=== PATIENT | male | born 1955 | race Caucasian/White ===

== ENCOUNTER 2019-10-20 11:15 | Emergency (ER) | payer OTHER ==
[~2019-10-20] VITALS: Ht 190.5 cm; Wt 77.1 kg
[2019-10-20] MEDS ORDERED: Chantix1 MG PO (11:30)
[2019-10-20 12:30] LABS: Alanine Aminotransfer (ALT/SGP 40 U/L (12-78); Albumin, Blood 3.5 g/dL (3.4-5.0); Albumin/Globulin Ratio 1.1 (0.8-1.8); Alk Phos 111 U/L (50-136); Anion Gap 9 mmol/L (6-16); Aspartate Aminotrans (AST/SGOT 26 U/L (12-37); Bilirubin, Total 0.8 mg/dL (0.1-1.0); Blood Urea Nitrogen 18 mg/dL (8-24); Bun/Creatinine Ratio 14.3 (12.0-20.0); CO2, Blood 22 mmol/L (21-32); Calcium, Blood 8.6 mg/dL (8.5-10.1); Chloride, Blood 105 mmol/L (98-108); Creatinine, Blood 1.26 mg/dL (0.60-1.20); Globulin, Blood 3.3 g/dL (2.2-4.0); Glomerular Filtration Rate >60 (60-); Glucose, Blood 146 mg/dL (70-99); Potassium, Blood 4.4 mmol/L (3.5-5.5); Sodium, Blood 136 mmol/L (136-145); Total Protein, Blood 6.8 g/dL (6.4-8.2)
[2019-10-20] MEDS ORDERED: TAMS.4ER PO (12:47)
[2019-10-20] MEDS ORDERED: HYDR1TAB94 PO (12:47)
[2019-10-20 13:15] LABS: BASOPHILS ABSOLUTE AUTO 0.03 K/mm3 (0.00-0.23); BASOPHILS PERCENT AUTO 0 % (0-2); EOSINOPHILS PERCENT AUTO 0 % (0-6); Hematocrit 42.6 % (37.0-53.0); Hemoglobin 14.3 g/dL (13.5-17.5); IMMATURE GRAN ABSOLUTE AUTO 0.06 K/mm3 (0.00-0.10); IMMATURE GRAN PERCENT AUTO 1 % (0-1); LYMPHOCYTES ABSOLUTE AUTO 0.76 K/mm3 (0.84-5.20); LYMPHOCYTES PERCENT AUTO 6 % (21-46); MONOCYTES ABSOLUTE AUTO 0.51 K/mm3 (0.16-1.47); MONOCYTES PERCENT AUTO 4 % (4-13); Mean Corpuscular HGB 31.8 pg (26.0-34.0); Mean Corpuscular HGB Conc 33.6 g/dL (31.5-36.5); Mean Corpuscular Volume 95 fL (80-100); Mean Platelet Volume 9.3 fL (9.1-12.4); NEUTROPHILS ABSOLUTE AUTO 11.02 K/mm3 (1.96-9.15); NEUTROPHILS PERCENT AUTO 89 % (41-73); Platelet Count 217 K/mm3 (150-400); RDW Coefficient Variation 11.8 % (11.7-14.2); RDW Standard Deviation 41.1 fL (35.1-46.3); Red Blood Cell Count 4.49 M/mm3 (4.30-5.90); White Blood Cell Count 12.38 K/mm3 (4.00-11.30)
[2019-10-20 14:11] LABS: Source, Urine Clean Catch
[2019-10-20 14:27] LABS: Bilirubin, Urine Neg (Neg); Blood, Urine 2+ (Neg); Glucose Qualitative, Urine Neg (Neg); Ketones, Urine 1+ (Neg); Leukocyte Esterase, Urine Neg (Neg); Nitrite, Urine Neg (Neg); Protein, Urine Neg (Neg); Specific Gravity, Urine 1.015 (1.003-1.022); Urobilinogen, Urine NORM (Normal)
[2019-10-20 14:56] LABS: Appearance, Urine Clear (Clear); Color, Urine Yellow (P-Yellow)
[2019-10-20 15:00] LABS: Bacteria Not Seen /hpf; Squamous Epithelial Cells Not Seen /hpf (Few); White Blood Cells, Urine 0-2 /hpf (0-5)
== END 2019-10-20 14:20 | disposition home or self-care (01) ==
LOC: ER 11:15
PROVIDERS: Emergency Medicine
DX: N13.2 Hydronephrosis with renal and ureteral calculous obstruction (principal); I71.9 Aortic aneurysm of unspecified site, without rupture; Z88.0 Allergy status to penicillin; Z79.899 Other long term (current) drug therapy; Z87.891 Personal history of nicotine dependence
CPT/HCPCS: 36415; 74176; 80053; 81001; 83690; 85025; 96361; 96374; 96375; 99284-25; J1885; J2405; J3010; J7030

== ENCOUNTER 2020-08-22 04:40 | Emergency (ER) | payer OTHER ==
[~2020-08-22] VITALS: Ht 182.9 cm; Wt 74.8 kg
[~2020-08-22 04:40] MED LIST: Chantix1 MG PO; HYDR1TAB94 PO; TAMS.4ER PO
[2020-08-22] MEDS ORDERED: SYMBICORT 80-10.2 GM INH (05:20)
[2020-08-22 06:03] LABS: Source, Urine Clean Catch
[2020-08-22 06:14] LABS: Appearance, Urine Clear (Clear); Bilirubin, Urine Neg (Neg); Blood, Urine 5+ (Neg); Color, Urine Yellow (P-Yellow); Glucose Qualitative, Urine Neg (Neg); Ketones, Urine Neg (Neg); Leukocyte Esterase, Urine 1+ (Neg); Nitrite, Urine Neg (Neg); Protein, Urine 1+ (Neg); Specific Gravity, Urine 1.025 (1.003-1.022); Urobilinogen, Urine NORM (Normal)
[2020-08-22 06:33] LABS: Red Blood Cells, Urine 50-100 /hpf (0-2); White Blood Cells, Urine 0-2 /hpf (0-5)
[2020-08-22 06:34] LABS: Bacteria Few /hpf; Mucus Light (0-Heavy); Squamous Epithelial Cells Rare /hpf (Few)
== END 2020-08-22 06:50 | disposition home or self-care (01) ==
LOC: ER 04:40
PROVIDERS: Student in an Organized Health Care Education/Training Program
DX: N20.0 Calculus of kidney (principal); J44.9 Chronic obstructive pulmonary disease, unspecified; F17.210 Nicotine dependence, cigarettes, uncomplicated
CPT/HCPCS: 81001; 87086; 99284

== ENCOUNTER 2020-09-05 09:35 | Emergency (ER) | payer OTHER ==
[~2020-09-05] VITALS: Ht 182.9 cm; Wt 74.8 kg
[~2020-09-05 09:35] MED LIST changes: +SYMBICORT 80-10.2 GM INH
[2020-09-05 10:10] LABS: BASOPHILS ABSOLUTE AUTO 0.07 K/mm3 (0.00-0.23); BASOPHILS PERCENT AUTO 1 % (0-2); EOSINOPHILS ABSOLUTE AUTO 0.16 K/mm3 (0.00-0.68); EOSINOPHILS PERCENT AUTO 2 % (0-6); Hematocrit 45.9 % (37.0-53.0); Hemoglobin 15.3 g/dL (13.5-17.5); IMMATURE GRAN ABSOLUTE AUTO 0.02 K/mm3 (0.00-0.10); IMMATURE GRAN PERCENT AUTO 0 % (0-1); LYMPHOCYTES ABSOLUTE AUTO 1.72 K/mm3 (0.84-5.20); LYMPHOCYTES PERCENT AUTO 24 % (21-46); MONOCYTES ABSOLUTE AUTO 0.83 K/mm3 (0.16-1.47); MONOCYTES PERCENT AUTO 12 % (4-13); Mean Corpuscular HGB 32.1 pg (26.0-34.0); Mean Corpuscular HGB Conc 33.3 g/dL (31.5-36.5); Mean Corpuscular Volume 96 fL (80-100); Mean Platelet Volume 9.7 fL (9.1-12.4); NEUTROPHILS ABSOLUTE AUTO 4.27 K/mm3 (1.96-9.15); NEUTROPHILS PERCENT AUTO 60 % (41-73); Platelet Count 239 K/mm3 (150-400); RDW Coefficient Variation 12.2 % (11.7-14.2); RDW Standard Deviation 43.8 fL (35.1-46.3); Red Blood Cell Count 4.76 M/mm3 (4.30-5.90); White Blood Cell Count 7.07 K/mm3 (4.00-11.30)
[2020-09-05 10:20] LABS: Alanine Aminotransfer (ALT/SGP 33 U/L (12-78); Albumin, Blood 3.5 g/dL (3.4-5.0); Alk Phos 119 U/L (50-136); Anion Gap 3 mmol/L (6-16); Aspartate Aminotrans (AST/SGOT 24 U/L (12-37); Bilirubin, Total 0.8 mg/dL (0.1-1.0); Blood Urea Nitrogen 21 mg/dL (8-24); Bun/Creatinine Ratio 18.6 (12.0-20.0); CO2, Blood 29 mmol/L (21-32); Calcium, Blood 9.1 mg/dL (8.5-10.1); Chloride, Blood 108 mmol/L (98-108); Creatinine, Blood 1.13 mg/dL (0.60-1.20); Globulin, Blood 3.6 g/dL (2.2-4.0); Glomerular Filtration Rate >60 (60-); Glucose, Blood 122 mg/dL (70-99); Potassium, Blood 4.2 mmol/L (3.5-5.5); Sodium, Blood 140 mmol/L (136-145); Total Protein, Blood 7.1 g/dL (6.4-8.2)
[2020-09-05 10:41] LABS: Source, Urine Clean Catch
[2020-09-05 10:47] LABS: Appearance, Urine Clear (Clear); Bilirubin, Urine Neg (Neg); Blood, Urine 4+ (Neg); Color, Urine Yellow (P-Yellow); Glucose Qualitative, Urine Neg (Neg); Ketones, Urine Neg (Neg); Leukocyte Esterase, Urine Neg (Neg); Nitrite, Urine Neg (Neg); Protein, Urine Neg (Neg); Specific Gravity, Urine 1.025 (1.003-1.022); Urobilinogen, Urine NORM (Normal)
[2020-09-05 11:22] LABS: Bacteria Mod /hpf; Squamous Epithelial Cells Not Seen /hpf (Few)
[2020-09-05] MEDS ORDERED: Percocet 5-3251 EACH PO (11:36)
[2020-09-05] MEDS ORDERED: IBUP400 PO (11:36)
[2020-09-05] MEDS ORDERED: ONDA4ODT SL (11:36)
== END 2020-09-05 12:04 | disposition home or self-care (01) ==
LOC: ER 09:35
PROVIDERS: Emergency Medicine
DX: N13.2 Hydronephrosis with renal and ureteral calculous obstruction (principal); I71.9 Aortic aneurysm of unspecified site, without rupture; J44.9 Chronic obstructive pulmonary disease, unspecified; F17.210 Nicotine dependence, cigarettes, uncomplicated; Z88.0 Allergy status to penicillin; Z79.899 Other long term (current) drug therapy
CPT/HCPCS: 36415; 74176; 80053; 81001; 83690; 85025; 87086; 96374; 96375; 99284-25; J1170; J1885; J2405; J7030

== ENCOUNTER 2022-04-09 08:33 | Day surgery (SDC) | payer OTHER ==
[~2022-04-09] VITALS: Ht 182.9 cm; Wt 71.4 kg
[~2022-04-09 08:33] MED LIST changes: +IBUP400 PO; +ONDA4ODT SL; +Percocet 5-3251 EACH PO
[2022-04-09] MEDS ORDERED: Chantix1 MG (09:10)
[2022-04-09] MEDS ORDERED: TIOT18 (09:10)
== END 2022-04-09 10:50 | disposition home or self-care (01) ==
LOC: ORSCSDS 08:33
PROVIDERS: Internal Medicine Gastroenterology
PROC: 0DBL8ZX Excision of Transverse Colon, Via Natural or Artificial Opening Endoscopic, Diagnostic (ICD-10-PCS; principal; 2022-04-09 09:45)
PROC: 0DBN8ZX Excision of Sigmoid Colon, Via Natural or Artificial Opening Endoscopic, Diagnostic (ICD-10-PCS; principal; 2022-04-09 09:45)
PROC: 0DBM8ZX Excision of Descending Colon, Via Natural or Artificial Opening Endoscopic, Diagnostic (ICD-10-PCS; principal; 2022-04-09 09:45)
DX: R19.5 Other fecal abnormalities (principal); D12.3 Benign neoplasm of transverse colon; D12.4 Benign neoplasm of descending colon; D12.5 Benign neoplasm of sigmoid colon; K64.8 Other hemorrhoids; K57.30 Diverticulosis of large intestine without perforation or abscess without bleeding; J44.9 Chronic obstructive pulmonary disease, unspecified; Z79.51 Long term (current) use of inhaled steroids; Z79.899 Other long term (current) drug therapy; Z87.891 Personal history of nicotine dependence
CPT/HCPCS: 88305; 93005; 93010; J2704; J7120

== ENCOUNTER 2024-08-12 23:02 | Inpatient (IN) | payer OTHER ==
[~2024-08-12] VITALS: Ht 182.9 cm; Wt 67.5 kg
[~2024-08-12 23:02] MED LIST changes: +Chantix1 MG; +TIOT18 INH
[2024-08-12] MEDS ORDERED: Albuterol 2.5 MG/3 ML VIAL INH SCH (23:10)
[2024-08-12 23:35] LABS: Base Excess Venous 0.3 mmol/L; Bicarbonate Venous 24.8 mmol/L (24.0-30.0); pH Blood Venous 7.41 (7.34-7.37)
[2024-08-12 23:36] LABS: BASOPHILS PERCENT AUTO 1 % (0-2); EOSINOPHILS ABSOLUTE AUTO 0.68 K/mm3 (0.00-0.68); EOSINOPHILS PERCENT AUTO 6 % (0-6); Hematocrit 42.6 % (37.0-53.0); Hemoglobin 14.5 g/dL (13.5-17.5); IMMATURE GRAN ABSOLUTE AUTO 0.04 K/mm3 (0.00-0.10); IMMATURE GRAN PERCENT AUTO 0 % (0-1); LYMPHOCYTES ABSOLUTE AUTO 3.09 K/mm3 (0.84-5.20); LYMPHOCYTES PERCENT AUTO 26 % (21-46); MONOCYTES ABSOLUTE AUTO 1.45 K/mm3 (0.16-1.47); MONOCYTES PERCENT AUTO 12 % (4-13); Mean Corpuscular HGB 31.5 pg (26.0-34.0); Mean Corpuscular Volume 93 fL (80-100); Mean Platelet Volume 9.4 fL (9.1-12.4); NEUTROPHILS ABSOLUTE AUTO 6.57 K/mm3 (1.96-9.15); NEUTROPHILS PERCENT AUTO 55 % (41-73); Platelet Count 237 K/mm3 (150-400); RDW Coefficient Variation 12.1 % (11.7-14.2); RDW Standard Deviation 41.1 fL (35.1-46.3); White Blood Cell Count 11.93 K/mm3 (4.00-11.30)
[2024-08-13] LABS: Magnesium, Blood 4.3 mg/dL (1.6-2.4)
[2024-08-13 00:01] LABS: Albumin, Blood 3.6 g/dL (3.4-5.0); Albumin/Globulin Ratio 1.1 (0.8-1.8); Bilirubin, Total 0.6 mg/dL (0.1-1.0); Bun/Creatinine Ratio 21.7 (12.0-20.0); Calcium, Blood 8.8 mg/dL (8.5-10.1); Creatinine, Blood 1.06 mg/dL (0.60-1.20); Globulin, Blood 3.3 g/dL (2.2-4.0); Phosphorus, Blood 4.3 mg/dL (2.5-4.9); Potassium, Blood 4.1 mmol/L (3.5-5.5); Total Protein, Blood 6.9 g/dL (6.4-8.2)
[2024-08-13 00:23] LABS: D-Dimer, Quantitative 2.58 mg/L FEU (0.00-0.52); International Normalized Ratio 1.02; Prothrombin Time Results 10.9 Sec (9.7-11.5)
[2024-08-13 02:20] LABS: Source, Urine Clean Catch
[2024-08-13 02:23] LABS: Bilirubin, Urine Neg (Neg); Blood, Urine Neg (Neg); Glucose Qualitative, Urine 2+ (Neg); Ketones, Urine 1+ (Neg); Leukocyte Esterase, Urine Neg (Neg); Nitrite, Urine Neg (Neg); Protein, Urine Neg (Neg); Urobilinogen, Urine NORM (Normal)
[2024-08-13 02:45] LABS: Appearance, Urine Clear (Clear); Color, Urine Yellow (P-Yellow)
[2024-08-13] MEDS ORDERED: Azithromycin 500 MG in NS 250 ML IV ONE ×2 (03:00→04:20)
[2024-08-13] MEDS ORDERED: NS 1,000 ML IV SCH (03:00)
[2024-08-13] MEDS ORDERED: FLU VACC TS2024-25(6MOS UP)/PF 45 MCG/0.5 ML SYRINGE IM ONE (03:15)
[2024-08-13] MEDS ORDERED: Ipratropium/Albuterol SulF 2.5-0.5MG/3 ML Amp INH SCH ×2 (03:15→16:37)
[2024-08-13] MEDS ORDERED: Acetaminophen 325 MG TABLET PO PRN (03:15)
[2024-08-13] MEDS ORDERED: Ondansetron 4 MG TAB PO PRN (03:20)
[2024-08-13 05:35] LABS: Influenza A, PCR NEGATIVE (NEGATIVE); Influenza B, PCR NEGATIVE (NEGATIVE); Resp Syncytial Virus, PCR NEGATIVE (NEGATIVE); SARS-Cov-2 (COVID-19) PCR, MMC NEGATIVE (NEGATIVE)
[2024-08-13] MEDS ORDERED: GuaiFENesin 600 MG TabCR PO SCH (09:00)
[2024-08-13] MEDS ORDERED: Enoxaparin 40 MG/0.4 ML SYR SC SCH (09:00)
[2024-08-13] MEDS ORDERED: Lactobacil 2-S.Thermo-Bifido 1 1 Cap PO SCH (09:00)
[2024-08-13] MEDS ORDERED: PredniSONE 20 MG Tab PO SCH (09:00)
[2024-08-13] MEDS ORDERED: Dose Adjust by Pharmacy XX STA ×2 (09:54→17:51)
[2024-08-13] MEDS ORDERED: Heparin Sodium 5000 Units/ML 1ML MDV IV ONE (09:55)
[2024-08-13] MEDS ORDERED: Heparin Sodium,Porcine/0.5 NS 500 ML IV SCH (09:55)
[2024-08-13] MEDS ORDERED: Aspirin 325 MG Tab PO ONE (16:25)
[2024-08-13] MEDS ORDERED: Albuterol 2.5 MG/3 ML VIAL INH PRN (16:40)
[2024-08-13 16:51] VITALS: BP 110/70
[2024-08-13] MEDS ORDERED: DIPH25 PO (18:11)
--- NOTE | 2024-08-13 19:25 | NUR ---
ADMISSION: REPORT RECEIVED FROM PILE DRIVER ENGINEER ERIC. PT TO UNIT AT ABOUT 1650. A/O, VSS. PT SOB ON EXERTION, RECOVERS WELL AT REST SP02 ABOVE 90% ON 2L NC. TELE VERIFIED BY ST Richard UMANZOR. PT DENIES CP AT THIS TIME. PT ORIENTED TO ROOM AND CALL LIGHT. WILL MONITOR.
[2024-08-13 19:41] VITALS: BP 111/75
[2024-08-14] VITALS (7 sets, daily range): BP systolic 104–145; BP diastolic 58–99
[2024-08-14 01:36] LABS: BASOPHILS ABSOLUTE AUTO 0.03 K/mm3 (0.00-0.23); BASOPHILS PERCENT AUTO 0 % (0-2); EOSINOPHILS ABSOLUTE AUTO 0.01 K/mm3 (0.00-0.68); EOSINOPHILS PERCENT AUTO 0 % (0-6); Hematocrit 38.1 % (37.0-53.0); Hemoglobin 12.8 g/dL (13.5-17.5); IMMATURE GRAN ABSOLUTE AUTO 0.08 K/mm3 (0.00-0.10); IMMATURE GRAN PERCENT AUTO 0 % (0-1); LYMPHOCYTES ABSOLUTE AUTO 1.85 K/mm3 (0.84-5.20); LYMPHOCYTES PERCENT AUTO 10 % (21-46); MONOCYTES ABSOLUTE AUTO 1.76 K/mm3 (0.16-1.47); MONOCYTES PERCENT AUTO 9 % (4-13); Mean Corpuscular HGB 31.5 pg (26.0-34.0); Mean Corpuscular HGB Conc 33.6 g/dL (31.5-36.5); Mean Corpuscular Volume 94 fL (80-100); Mean Platelet Volume 9.7 fL (9.1-12.4); NEUTROPHILS ABSOLUTE AUTO 15.38 K/mm3 (1.96-9.15); NEUTROPHILS PERCENT AUTO 80 % (41-73); Platelet Count 219 K/mm3 (150-400); RDW Coefficient Variation 12.3 % (11.7-14.2); RDW Standard Deviation 42.3 fL (35.1-46.3); Red Blood Cell Count 4.06 M/mm3 (4.30-5.90); White Blood Cell Count 19.11 K/mm3 (4.00-11.30)
[2024-08-14 01:54] LABS: Bun/Creatinine Ratio 17.6 (12.0-20.0); Calcium, Blood 7.8 mg/dL (8.5-10.1); Creatinine, Blood 0.96 mg/dL (0.60-1.20)
[2024-08-14] MEDS ORDERED: Dose Adjust by Pharmacy XX STA (02:47)
--- NOTE | 2024-08-14 04:49 | NUR ---
SHIFT SUMMARY NOC PT A/O X 4. PLEASANT AND COOPERATIVE WITH CARE. VSS. PT DOES TACH UP INTO 110'S WITH AMBULATION. NO C/O OF CP. PT MAGNESIUM 4.3 PREVIOUS DAY AND RECHECKED AND NOW MG 2.1. PT ON TELE SINUS IN 60'S-70'S. PT ON 1-2L/HFNC FOR SOB. PT HAS BEEN NPO SINCE MIDNIGHT FOR ANGIOGRAM TDOAY. PT HAS HEPARIN DRIP INFUSING PER EMAR. PT CURRENTLY RESTING WITH BED IN LOWEST POSITION, AND CALL LIGHT WITHIN REACH.
[2024-08-14] MEDS ORDERED: Heparin Sodium 1000 Units/ML 10ML MDV ONE (08:06)
[2024-08-14] MEDS ORDERED: Verapamil HCL 2.5 MG/ML 2ML Injection ONE (08:06)
[2024-08-14] MEDS ORDERED: Midazolam HCl 1MG / ML 2ML Vial ONE (08:06)
[2024-08-14] MEDS ORDERED: FentaNYL Citrate 50 MCG/ML 2 ML Injection ONE (08:06)
[2024-08-14] MEDS ORDERED: NS 1,000 ML IV ONE (08:07)
[2024-08-14] MEDS ORDERED: NS 0 ML IV ONE (08:07)
[2024-08-14] MEDS ORDERED: Nitroglycerin 2 MG/20 ML BTL ONE (08:07)
[2024-08-14] MEDS ORDERED: Furosemide 10 MG / ML 2ML Vial IV ONE (08:45)
--- NOTE | 2024-08-14 10:00 | NUR ---
TRANSFER NOTE PT TRANSFERED TO ROOM PCU 13 FROM 211. PT WAS ABLE TO AMBULATE FROM TO BED SBA. PT IS NPO FOR POSSIBLE ANGIOGRAM TODAY, LASIX GIVEN THIS AM PER DR. HUNTER. REPORT TO MILLIE OGDEN.
--- NOTE | 2024-08-14 14:03 | NUR ---
PATIENT TRANSFER FROM SURG 211 TO PCU 13: PATIENT ALERT AND ORIENTED X4. ABLE TO STAND AND TRANSFER TO BED, SBA. ON 1-3L NASAL CANNULA DEPENDING ON ACTIVITY. NPO AT THIS TIME FOR POSSIBLE ANGIO LATER TODAY. TELE SHOWING SR WITH 1ST DEGREE AND BBB. HR 90-110'S. DENIES CHEST PAIN/PRESSURE/PALPITATIONS. NO EDEMA NOTED. IV HEPARIN INFUSING PER EMAR. STANDING WEIGHT COMPLETED UPON TRANSFER. OCCASIONAL COUGH WITH PRODUCTIVE SPUTUM. STRICT INTAKE AND OUTPUT. IV LASIX GIVEN THIS AM BY SURG FLOOR NURSE AND THUS FAR PATIENT HAS VOIDED 1,150ML. BOWEL TONES PRESENT DENIES ABDOMINAL PAIN/NAUSEA. SKIN C/D/I WITH SCABBING TO RIGHT BIG TOE, PATIENT STATES HE HAS IN-GROWN TOENAIL. CALL LIGHT IN REACH. DENIES NEEDS AT THIS TIME.
--- NOTE | 2024-08-14 18:24 | NUR ---
SHIFT SUMMARY: NO ACUTE CHANGES, SEE PREVIOUS NOTE. PATIENT REMAINS ON 1L NASAL CANNULA. HEPARIN INFUSING PER EMAR. TELE SHOWING SR WITH 1ST DEGREE AND BBB. DENIES PAINS. EATING DINNER AT THIS TIME. USING URINAL TO VOID. VITAL SIGNS STABLE. CALL LIGHT IN REACH. DENIES NEEDS.
--- NOTE | 2024-08-14 19:14 | NUR ---
ASSUMPTION NOTE: THIS RN TO ASSUME CARE OF PATIENT. PATIENT IS IN BED WATHCING TV. DAY TEAM GAVE BEDSIDE SHIFT REPORT TO THIS RN. PATIENT TO BECOME NPO AT MIDNIGHT AND PATIENT AWARE. PATIENT DENIED NEEDING ANYTHING AT THIS TIME, HAS CALL LIGHT WITHIN REACH AND BED IN LOWEST POSITION.
[2024-08-15 03:09] VITALS: BP 142/107
[2024-08-15 03:12] LABS: BASOPHILS ABSOLUTE AUTO 0.06 K/mm3 (0.00-0.23); BASOPHILS PERCENT AUTO 0 % (0-2); EOSINOPHILS ABSOLUTE AUTO 0.27 K/mm3 (0.00-0.68); EOSINOPHILS PERCENT AUTO 2 % (0-6); Hematocrit 42.1 % (37.0-53.0); Hemoglobin 14.3 g/dL (13.5-17.5); IMMATURE GRAN ABSOLUTE AUTO 0.07 K/mm3 (0.00-0.10); IMMATURE GRAN PERCENT AUTO 0 % (0-1); LYMPHOCYTES ABSOLUTE AUTO 2.98 K/mm3 (0.84-5.20); LYMPHOCYTES PERCENT AUTO 17 % (21-46); MONOCYTES ABSOLUTE AUTO 1.41 K/mm3 (0.16-1.47); MONOCYTES PERCENT AUTO 8 % (4-13); Mean Corpuscular HGB 31.5 pg (26.0-34.0); Mean Corpuscular Volume 93 fL (80-100); Mean Platelet Volume 9.7 fL (9.1-12.4); NEUTROPHILS ABSOLUTE AUTO 12.41 K/mm3 (1.96-9.15); NEUTROPHILS PERCENT AUTO 72 % (41-73); Platelet Count 241 K/mm3 (150-400); RDW Coefficient Variation 12.4 % (11.7-14.2); RDW Standard Deviation 42.5 fL (35.1-46.3); Red Blood Cell Count 4.54 M/mm3 (4.30-5.90)
[2024-08-15 03:51] LABS: Albumin, Blood 3.4 g/dL (3.4-5.0); Anion Gap 10 mmol/L (3-11); Blood Urea Nitrogen 24 mg/dL (8-24); CO2, Blood 26 mmol/L (21-32); Calcium, Blood 8.9 mg/dL (8.5-10.1); Chloride, Blood 105 mmol/L (98-108); Creatinine, Blood 1.09 mg/dL (0.60-1.20); Glomerular Filtration Rate 73 (60-); Glucose, Blood 101 mg/dL (70-99); Phosphorus, Blood 3.4 mg/dL (2.5-4.9); Potassium, Blood 4.1 mmol/L (3.5-5.5); Sodium, Blood 137 mmol/L (136-145)
[2024-08-15] MEDS ORDERED: Dose Adjust by Pharmacy XX STA (04:01)
--- NOTE | 2024-08-15 04:53 | NUR ---
END OF SHIFT SUMMARY: PATIENT IS ALERT AND ORIENTED X4 AND COOPERATIVE WITH CARE. PATIENT IS ON TELE SHOWING SINUS RYTHM TO SINUS TACH WITH RATE 80-120'S. SATTING >92% ON ROOM AIR, AT THE START OF SHIFT PATIENT WAS ON 1 LITER. PATIENT'S NOSTRILS WERE DRYING OUT, PATIENT REPORTED AND SHOWED SOME BLOOD TINGED MUCUS FROM NOSTRILS AND TOOK OFF NASAL CANNULA. PATIENT WAS ABLE TO GET SOME REST. CONTINUES TO BE NPO FOR A POSSIBLE ANGIOGRAM IN THE MORNING. PATIENT IS STAND BY ASSIST TO MANAGE LINES/CHORDS. USES THE URINAL AT BEDSIDE, CALLS APPRORIATELY. HAS THE BED IN LOWEST POSITION AND CALL LIGHT WITHIN REACH.
[2024-08-15 07:15] VITALS: BP 161/113
--- NOTE | 2024-08-15 07:52 | NUR ---
NURSING PCU DAYSHIFT: Assumed care of pt at approx 0700. A/O, anxious, fairly cooperative w/care. Skin is pale w/no noted breakdown. Mild general weakness though able to reposition with minimal assistance. No noted pain. Tele in place, ST w/BBB, HR 110-120's, no c/o CP/pressure, HTN w/SBP 161, no noted edema. L/S w/significant exp wheeze t/o, tight bases, dyspnea w/minimal exertion, O2 sat upper 90's on RA, harsh cough producing thick/gomez sputum, cont O2 monitoring in place. Abd SNT, BT+, voiding w/o difficulty using urinal. PIV x2, hep gtt infusing per pharmacy dosing. RT at bedside this a.m. for tx during at which time pt experienced increased RR and HR. Calmed within 15-20 min, HR and RR improved. Fan provided at bedside for comfort. No s/s of acute distress as pt is lying in bed listening to radio station on phone. Awaiting rounding from PMD, cont to monitor for changes.
[2024-08-15 10:27] LABS: CHOL/HDL RATIO 3.3; Cholesterol 203 mg/dL (50-200); HDL Cholesterol 61 mg/dL (>39); LDL/HDL RATIO 2.1; Low Density Lipoprotein Chol 130 mg/dL (0-110); Triglycerides 61 mg/dL (30-160); Very Low Density Lipoprot Chol 12 mg/dL (6-32)
[2024-08-15] MEDS ORDERED: Aspirin 81 MG Chew PO SCH (11:25)
[2024-08-15] MEDS ORDERED: Losartan Potassium 25 MG Tab PO SCH (11:25)
[2024-08-15] MEDS ORDERED: Carvedilol 3.125 MG Tab PO SCH ×2 (11:25→17:00)
[2024-08-15 16:02] VITALS: BP 107/69
[2024-08-15] MEDS ORDERED: Enoxaparin 40 MG/0.4 ML SYR SC SCH (17:00)
--- NOTE | 2024-08-15 17:31 | NUR ---
NURSING PCU DAYSHIFT SUMMARY: Seen by PMD this a.m., new d/o received, medications administered as ordered. HR and SBP have improved t/o day w/HR currently 60-80's. Tolerated RA t/o shift, even during periods of sleep. Has been able to stand at bedside and resposition independently w/o O2 sat decreasing, continuous O2 monitor remains in place. Pt has acknowledged and verbalized improvement since this a.m. No s/s of acute distress at this time, call light in reach, cont to monitor until rpt is given to NOC RN.
[2024-08-15 19:17] VITALS: BP 113/81
[2024-08-15 23:33] VITALS: BP 141/90
[2024-08-16 04:32] VITALS: BP 143/88
[2024-08-16 04:53] LABS: BASOPHILS ABSOLUTE AUTO 0.07 K/mm3 (0.00-0.23); BASOPHILS PERCENT AUTO 1 % (0-2); EOSINOPHILS ABSOLUTE AUTO 0.42 K/mm3 (0.00-0.68); EOSINOPHILS PERCENT AUTO 3 % (0-6); Hematocrit 41.9 % (37.0-53.0); Hemoglobin 14.3 g/dL (13.5-17.5); IMMATURE GRAN ABSOLUTE AUTO 0.05 K/mm3 (0.00-0.10); IMMATURE GRAN PERCENT AUTO 0 % (0-1); LYMPHOCYTES ABSOLUTE AUTO 3.32 K/mm3 (0.84-5.20); LYMPHOCYTES PERCENT AUTO 24 % (21-46); MONOCYTES ABSOLUTE AUTO 1.38 K/mm3 (0.16-1.47); MONOCYTES PERCENT AUTO 10 % (4-13); Mean Corpuscular HGB 31.8 pg (26.0-34.0); Mean Corpuscular HGB Conc 34.1 g/dL (31.5-36.5); Mean Corpuscular Volume 93 fL (80-100); Mean Platelet Volume 10.1 fL (9.1-12.4); NEUTROPHILS ABSOLUTE AUTO 8.56 K/mm3 (1.96-9.15); NEUTROPHILS PERCENT AUTO 62 % (41-73); Platelet Count 232 K/mm3 (150-400); RDW Coefficient Variation 12.2 % (11.7-14.2); RDW Standard Deviation 42.3 fL (35.1-46.3)
[2024-08-16 05:17] LABS: Albumin, Blood 3.2 g/dL (3.4-5.0); Anion Gap 12 mmol/L (3-11); Blood Urea Nitrogen 26 mg/dL (8-24); Bun/Creatinine Ratio 23.9 (12.0-20.0); CO2, Blood 25 mmol/L (21-32); Calcium, Blood 8.7 mg/dL (8.5-10.1); Chloride, Blood 104 mmol/L (98-108); Creatinine, Blood 1.09 mg/dL (0.60-1.20); Glomerular Filtration Rate 73 (60-); Glucose, Blood 74 mg/dL (70-99); Phosphorus, Blood 3.8 mg/dL (2.5-4.9); Potassium, Blood 4.3 mmol/L (3.5-5.5); Sodium, Blood 137 mmol/L (136-145)
--- NOTE | 2024-08-16 05:20 | NUR ---
SHIFT SUMMARY PT REMAINS A&OX4. NO ACUTE CHANGES OVERNIGHT. VSS ON RA SATTING 95%. ON TELE PT NSR/ST LOW 100s. NO C/O CP OR SOB. PT UP SBA AND USING URINAL AT BEDSIDE. ABLE TO MAKE NEEDS KNOWN. NO FURTHER QUESTIONS OR CONCERNS AT THIS TIME. WILL CONTINUE WITH PLAN OF CARE AND REPORT TO ONCOMING NURSE.
[2024-08-16 07:31] VITALS: BP 117/73
[2024-08-16] MEDS ORDERED: Aspirin 81 MG Chew PO SCH (09:00)
[2024-08-16] MEDS ORDERED: Losartan Potassium 25 MG Tab PO SCH (09:00)
[2024-08-16] MEDS ORDERED: Atorvastatin 40 MG Tab PO SCH (09:00)
--- NOTE | 2024-08-16 09:51 | NUR ---
AM NOTE this rn assumed care at 0700. vital signs stable. spo2 >92% on 1l nc. tele sinus tach 100s. patient is alert and oriented x4. neuro is intact. perrla. patient is able to make needs known and uses call light approrpiately. patient denies pain, chest pain/pressure or shortness of breath. patient is a standby for safety, and is independent in ADLS. see shift assessment for further detials. Md Castilloan in to see patient and plan for home o2 eval and to go home today.
--- NOTE | 2024-08-16 10:39 | NUR ---
update-home o2 eval patient with respiratory therapy doing home o2 eval and during home o2 eval patient reported chest pain and upper left shoulder pain. this rn called md valverde to notify of results of not needing home o2 and the complaints of pain. no new orders at this time.
[2024-08-16 11:52] VITALS: BP 123/65
[2024-08-16] MEDS ORDERED: CARV3.125 PO (12:01)
[2024-08-16] MEDS ORDERED: ASPI81CH PO (12:01)
[2024-08-16] MEDS ORDERED: ATOR40TA PO (12:01)
[2024-08-16] MEDS ORDERED: GUAIFENESIN ER600 MG PO (12:02)
[2024-08-16] MEDS ORDERED: PRED20 PO (12:02)
[2024-08-16] MEDS ORDERED: LOSA25 PO (12:02)
[2024-08-16] MEDS ORDERED: ALBU90OI INH (12:03)
--- NOTE | 2024-08-16 12:18 | NUR ---
discharge education this rn went over discharge education with the patient. this rn went over new medications: aspirin, atorvastatin, carvedilol, guaifenesin, losartan, prednisone, and albuterol and all medications faxed to [facility] and confirmed with a fax back. this rn went over follow up appointments and patient verbalized understanding. plan for patient to leave at 1600.
[2024-08-16 15:39] VITALS: BP 140/82
--- NOTE | 2024-08-16 16:12 | NUR ---
DISCHARGE patient left at 1602 with all belongings and in no distress, and awaiting out front for his ride. see previous notes
== END 2024-08-16 16:02 | disposition home or self-care (01) | DRG 190 ==
LOC: ER 23:02 → ERHOLD 23:03 → PCU 08-13 13:27 → ERHOLD 08-13 13:27 → SURS 08-13 16:17 → PCU 08-14 08:29
PROVIDERS: Emergency Medicine; Family Medicine; ADMIT Student in an Organized Health Care Education/Training Program
PROC: 5A09357 Assistance with Respiratory Ventilation, Less than 24 Consecutive Hours, Continuous Positive Airway Pressure (ICD-10-PCS; principal; 2024-08-13)
DX: J44.1 Chronic obstructive pulmonary disease with (acute) exacerbation (principal); I21.A1 Myocardial infarction type 2; I44.7 Left bundle-branch block, unspecified; J43.9 Emphysema, unspecified; I71.40 Abdominal aortic aneurysm, without rupture, unspecified; J44.9 Chronic obstructive pulmonary disease, unspecified; Z87.442 Personal history of urinary calculi; E86.0 Dehydration; F17.210 Nicotine dependence, cigarettes, uncomplicated; Z28.21 Immunization not carried out because of patient refusal; Z88.0 Allergy status to penicillin; Z79.899 Other long term (current) drug therapy; D64.9 Anemia, unspecified
CPT/HCPCS: 0241U; 36415; 71045; 71260; 80048; 80053; 80061; 80069; 81003; 82803; 83605; 83735; 83880; 84100; 84484; 85025; 85379; 85520; 85610; 93005; 93010; 93306; 94640; 94644; 94664; 94761; 94762; 96365; 96366; 96367; 99285-25; A9270; G0378; J0456; J1644; J1650; J1940; J2250; J3010; J7030; J7050; J7512; Q9967